=== PATIENT | female | born 1990 | race Caucasian/White ===

== ENCOUNTER 2016-11-06 21:46 | Emergency (ER) | payer MEDICAID, OTHER ==
[2016-11-06 21:59] VITALS: BP 144/89; PULSE 83; RESP 18; TEMP 97
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
--- NOTE | 2016-11-06 23:07 | XR ---
EXAM: XR Left Ankle Complete, 3 or More Views CLINICAL HISTORY: Reason: Pain TECHNIQUE: Frontal, lateral and oblique views of the left ankle. COMPARISON: No relevant prior studies available. FINDINGS: Bones/joints: No evidence of fracture or dislocation. No arthritic or bony erosive changes identified. Soft tissues: No radiopaque soft tissue foreign bodies. IMPRESSION: No significant bone or joint abnormalities.
--- NOTE | 2016-11-06 23:15 | XR ---
EXAM: XR Left Foot Complete, 3 or More Views CLINICAL HISTORY: Reason: Pain TECHNIQUE: Frontal, lateral and oblique views of the left foot. COMPARISON: No relevant prior studies available. FINDINGS: Bones/joints: Possible nondisplaced fracture involving base of fourth metatarsal. No other fracture or dislocation identified. No arthritic or bony erosive changes. Soft tissues: No radiopaque foreign bodies identified. IMPRESSION: Possible nondisplaced fracture involving base of fourth metatarsal. Clinical correlation recommended. [employer] 11/06/16 23:21 Verify Receipt Verified receipt with JEANETTE Bell on 11/06 23:20 (-04:00)
== END 2016-11-06 23:31 | disposition home or self-care (01) ==
LOC: EC 21:46
DX: S92.341A Displaced fracture of fourth metatarsal bone, right foot, initial encounter for closed fracture (principal); S93.402A Sprain of unspecified ligament of left ankle, initial encounter; F41.9 Anxiety disorder, unspecified; F32.9 Major depressive disorder, single episode, unspecified; Z79.899 Other long term (current) drug therapy; W01.0XXA Fall on same level from slipping, tripping and stumbling without subsequent striking against object, initial encounter; Y93.89 Activity, other specified
CPT/HCPCS: 99283

== ENCOUNTER 2017-06-13 10:06 | Emergency (ER) | payer OTHER ==
[2017-06-13 10:20] VITALS: BP 126/85; PULSE 62; RESP 18; TEMP 97.3
[2017-06-13] MEDS ORDERED: IBUPROFEN 600 MG TAB PO STA (10:26)
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
== END 2017-06-13 11:07 | disposition home or self-care (01) ==
LOC: EC 10:06
DX: S39.012A Strain of muscle, fascia and tendon of lower back, initial encounter (principal); S29.019A Strain of muscle and tendon of unspecified wall of thorax, initial encounter; F32.9 Major depressive disorder, single episode, unspecified; Z79.899 Other long term (current) drug therapy; Z91.048 Other nonmedicinal substance allergy status; V89.2XXA Person injured in unspecified motor-vehicle accident, traffic, initial encounter; Y92.410 Unspecified street and highway as the place of occurrence of the external cause
CPT/HCPCS: 72070; 72100; 99284

== ENCOUNTER → 2018-08-22 | Outpatient (CLI) | payer OTHER ==
--- NOTE | 2018-08-22 11:18 | US ---
EXAMINATION TYPE: US gallbladder DATE OF EXAM: 08/22/2018 COMPARISON: Prior ultrasound 12/08/2009 CLINICAL HISTORY: R10.10 upper abdominal pain, Z68.37 BMI 37.0-37.9. Bowel issues per patient. No joshi rgeries. NPO. EXAM MEASUREMENTS: Liver Length: 16.1 cm Gallbladder Wall: 0.1 cm CBD: 0.2 cm CHD: 0.3 cm Right Kidney: 9.4 x 4.2 x 4.2 cm suboptimal visualization due to patient body habitus Pancreas: wnl Liver: wnl Gallbladder: wnl Evidence for sonographic Marlow's sign: neg CBD: wnl CHD: wnl Right Kidney: wnl There is no ascites. IMPRESSION: No significant abnormalities evident.
== END ==
LOC: RADUSWWP 08:54
PROVIDERS: ATTEND Family Medicine
DX: R10.10 Upper abdominal pain, unspecified (principal)
CPT/HCPCS: 76705

== ENCOUNTER → 2022-02-26 | Outpatient (CLI) | payer OTHER ==
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
== END | disposition home or self-care (01) ==
LOC: RADCTMAIN 14:40
PROVIDERS: ATTEND Family Medicine
DX: M51.16 Intervertebral disc disorders with radiculopathy, lumbar region (principal)
CPT/HCPCS: 72131

== ENCOUNTER 2022-04-24 13:35 | Emergency (ER) | payer OTHER ==
[2022-04-24] MEDS ORDERED: PENICILLIN V POTASSIUM 250 MG TAB PO STA (14:23)
[2022-04-24] MEDS ORDERED: BENZOCAINE/MENTHOL LOZENG 1 EACH LOZENGE MUCOUS MEM STA (14:23)
--- NOTE | 2022-04-24 14:26 | ED ---
ENT HPI - General Chief complaint: ENT Stated complaint: sore throat & swelling Time Seen by Provider: 04/24/22 14:05 Source: patient - History of Present Illness Initial comments: Patient is a 32 -year-old female who presents to the emergency Department for sore throat. Symptoms started yesterday. Patient has concern for swelling of her uvula. Denies dyspnea, fever, drooling, lockjaw, chest pain, cough. - Related Data Home Medications Medication Instructions Recorded Confirmed [place] Carbonate 300 mg PO TID 06/13/17 06/13/17 Mirtazapine [Remeron] 15 mg PO HS 06/13/17 06/13/17 clonazePAM [KlonoPIN] 0.5 - 1 mg PO BID 06/13/17 06/13/17 Previous Rx's Medication Instructions Recorded Benzocaine/Menthol Lozeng [Cepacol 1 each MUCOUS MEM Q6HR PRN #20 04/24/22 lozenge] lozenge Penicillin V Potassium [Pen Vee K] 500 mg PO BID #20 tablet 04/24/22 Allergies Allergy/AdvReac Type Severity Reaction Status Date / Time red (food color) AdvReac Unknown Verified 04/24/22 13:40 red dye AdvReac Unknown Verified 04/24/22 13:40 Review of Systems ROS Statement: Those systems with pertinent positive or pertinent negative responses have been documented in the HPI. ROS Other: All systems not noted in ROS Statement are negative. Past Medical History Past Medical History: No Reported History Additional Past Medical History / Comment(s): States history of lactose intolerance History of Any Multi-Drug Resistant Organisms: None Reported Past Surgical History: No Surgical Hx Reported Past Anesthesia/Blood Transfusion Reactions: No Reported Reaction Past Psychological History: Anxiety, Bipolar, Depression Past Alcohol Use History: Occasional Past Drug Use History: None Reported - Past Family History Mother Family Medical History: No Reported History Additional Family Medical History / Comment(s): Mom has a brain injury. General Exam General appearance: alert, in no apparent distress Head exam: Present: atraumatic, normocephalic, normal inspection Eye exam: Present: normal appearance, PERRL, EOMI. Absent: scleral icterus, c onjunctival injection, periorbital swelling ENT exam: Absent: normal oropharynx (erythematous tonsils b/l with exudate. mild uvular swelling) Neck exam: Present: normal inspection, full ROM. Absent: tenderness Respiratory exam: Present: normal lung sounds bilaterally. Absent: respiratory distress, wheezes, rales, rhonchi, stridor Cardiovascular Exam: Present: regular rate, normal rhythm, normal heart sounds. Absent: systolic murmur, diastolic murmur, rubs, gallop, clicks Neurological exam: Present: alert, oriented X3, CN II-XII intact Psychiatric exam: Present: normal affect, normal mood Skin exam: Present: warm, dry, intact, normal color. Absent: rash Course Vital Signs 04/24/22 04/24/22 13:38 15:30 Temperature 98.4 F 98.8 F Pulse Rate 85 72 Respiratory 16 18 Rate Blood Pressure 129/82 132/71 O2 Sat by Pulse 96 98 Oximetry Medical Decision Making - Medical Decision Making Was pt. sent in by a medical professional or institution (, PA, HOG FEEDER, urgent care, hospital, or half-way...) When possible be specific @ -No Did you speak to anyone other than the patient for history (EMS, parent, family, police, friend...)? What history was obtained from this source @ -No Did you review nursing and triage notes (agree or disagree)? Why? @ -I reviewed and agree with nursing and triage notes Were old charts reviewed (outside hosp., previous admission, EMS record, old EKG, old radiological studies, urgent care reports/EKG's, half-way records)? Report findings @ -No old charts were reviewed Differential Diagnosis (chest pain, altered mental status, abdominal pain women, abdominal pain men, vaginal bleeding, weakness, fever, dyspnea, syncope, headache, dizziness, GI bleed, back pain, seizure, CVA, palpatations, mental health)? @ -peritonsilar abscess, strep throat, URI EKG interpreted by me (3pts min.). @ -As above X-rays interpreted by me (1pt min.). @ -None done CT interpreted by me (1pt min.). @ -None done U/S interpreted by me (1pt. min.). @ -None done What testing was considered but not performed or refused? (CT, X-rays, U/S, labs)? Why? @ -None What meds were considered but not given or refused? Why? @ -None Did you discuss the management of the patient with other professionals (professionals i.e. DrQueenie, PA, HOG FEEDER, lab, RT, psych nurse, geriatric social worker, independent living instructor, teacher, parole hearing officer, field case manager)? Give summary @ -No Was smoking cessation discussed for >3mins.? @ -No Was critical care preformed (if so, how long)? @ -No Were there social determinants of health that impacted care today? How? (Homelessness, low income, unemployed, alcoholism, drug addiction, transportation, low edu. Level, literacy, decrease access to med. care, long term, rehab)? @ -No Was there de-escalation of care discussed even if they declined (Discuss DNR or withdrawal of care, Hospice)? DNR status @ -No What co-morbidities impacted this encounter? (DM, HTN, Smoking, COPD, CAD, Cancer, CVA, ARF, Chemo, Hep., AIDS, mental health diagnosis, sleep apnea, morbid obesity)? @ -None Was patient admitted / discharged? Hospital course, mention meds given and route, prescriptions, significant lab abnormalities, going to OR and other pertinent info. @ -This is a 32-year-old presenting with throat pain. With concern for strep throat and was tested which was positive. Patient has mild uvular swelling- she looks well, no airway involvement, afebrile. Given a dose of dexamethasone as well as first dose of penicillin. Patient will be discharged with penicillin the and strict return parameters. Undiagnosed new problem with uncertain prognosis? @ -No Drug Therapy requiring intensive monitoring for toxicity (Heparin, Nitro, Insulin, Cardizem)? @ -No Were any procedures done? @ -No Diagnosis/symptom? @ -strep throat Acute, or Chronic, or Acute on Chronic? @ -acute Uncomplicated (without systemic symptoms) or Complicated (systemic symptoms)? @ -uncomplicated Side effects of treatment? @ -No Exacerbation, Progression, or Severe Exacerbation? @ -No Poses a threat to life or bodily function? How? (Chest pain, [place], MS, pneumonia, PE, COPD, DKA, ARF, appy, cholecystitis, CVA, Diverticulitis, Homicidal, Suicidal, threat to staff... and all critical care pts) @ -No Dr. Martinez is my attending. - Lab Data Lab Results 01/17/23 01/17/23 Range/Units 13:43 13:43 Influenza Type A (PCR) Not Detected (Not Detectd) Influenza Type B (PCR) Not Detected (Not Detectd) RSV (PCR) Not Detected (Not Detectd) SARS-CoV-2 (PCR) Not Detected (Not Detectd) Group A Strep (PCR) DETECTED A (Not Detectd) Disposition Clinical Impression: Strep pharyngitis Disposition: HOME SELF-CARE Condition: Good Instructions (If sedation given, give patient instructions): Strep Throat (ED) Additional Instructions: Take medication as directed. Use of warm teas and salt water gargles may help throat pain. Alternate Tylenol and Motrin every 3-4 hours to stay on top of fever and pain. Return to the emergency department if you experience new, concerning, or worsening symptoms Prescriptions: Benzocaine/Menthol Lozeng [Cepacol lozenge] 1 each MUCOUS MEM Q6HR PRN #20 lozenge PRN Reason: Pain Penicillin V Potassium [Pen Vee K] 500 mg PO BID #20 tablet Is patient prescribed a controlled substance at d/c from ED?: No Referrals: Mallika Fletcher III, MD [Primary Care Provider] - 1-2 days
[2022-04-24] MEDS ORDERED: dexAMETHasone 2 MG TAB PO STA (14:35)
[2022-04-24] MEDS ORDERED: KETOROLAC 15 MG/ML 1 ML VIAL IM STA (14:36)
[2022-04-24 15:30] VITALS: BP 132/71; PULSE 72; RESP 18; TEMP 98.8
== END 2022-04-24 15:30 | disposition home or self-care (01) ==
LOC: EC 13:35
DX: J02.0 Streptococcal pharyngitis (principal); F41.9 Anxiety disorder, unspecified; F31.9 Bipolar disorder, unspecified; Z91.02 Food additives allergy status; Z91.041 Radiographic dye allergy status; Z20.822 Contact with and (suspected) exposure to COVID-19
CPT/HCPCS: 87651; 87636; 99283; 96372; J8540; J1885